=== PATIENT | male | born 1965 | race Two or more races ===

== ENCOUNTER 2021-05-17 16:01 | Emergency (ER) | payer OTHER ==
[~2021-05-17] VITALS: Ht 167.6 cm; Wt 79.5 kg
[2021-05-17 16:35] LABS: BASOPHILS % (AUTO) 0.7 % (0.0-2.0); EOSINOPHILS % (AUTO) 1.2 % (1.0-6.0); HEMATOCRIT 42.6 % (41-53); HEMOGLOBIN 14.7 g/dL (13.5-17.5); LYMPHOCYTES # (AUTO) 2.4 K/uL (1.0-4.8); LYMPHOCYTES % (AUTO) 25.3 % (22.0-44.0); MEAN CORPUSCULAR HEMOGLOBIN 30.9 pg (26.0-34.0); MEAN CORPUSCULAR HGB CONC 34.5 G/dL (31.0-37.0); MEAN CORPUSCULAR VOLUME 90 fL (80-100); MONOCYTES # (AUTO) 0.6 K/uL (0.1-1.0); MONOCYTES % (AUTO) 6.8 % (2.0-9.0); NEUTROPHILS # (AUTO) 6.2 K/uL (1.8-7.7); PLATELET COUNT (AUTO) 316 K/uL (150-450); RED BLOOD CELL COUNT(AUTO) 4.75 MIL/uL (4.50-5.90); RED CELL DISTRIBUTION WIDTH 13.2 % (11.5-14.5)
[2021-05-17 16:42] VITALS: BP 153/98
[2021-05-17 16:46] LABS: ANION GAP 8 mmol/L (8-16); CALCIUM, TOTAL 8.9 mg/dL (8.8-10.5); CARBON DIOXIDE 27 mmol/L (22-29); CHLORIDE 105 mmol/L (98-107); GLOMERULAR FILTR. RATE CALC > 60 mL/min (>60); GLUCOSE,RANDOM 98 mg/dL (70-110); POTASSIUM 3.9 mmol/L (3.5-5.1); SODIUM SERUM 140 mmol/L (136-145); UREA NITROGEN, BLOOD 17 mg/dL (7-18)
[2021-05-17 16:52] LABS: ALANINE AMINOTRANSFERASE 73 U/L (12-78); ALBUMIN 3.7 g/dL (3.4-5.0); ALKALINE PHOSPHATASE 112 U/L (46-116); ASPARTATE AMINOTRANSFERASE 38 U/L (15-37); BILIRUBIN,TOTAL 0.5 mg/dL (0.1-1.0); TOTAL PROTEIN, SERUM 7.5 g/dL (6.4-8.2)
[2021-05-17 17:17] LABS: COVID AG,FIA SOURCE NASOPHARYNGEAL
== END 2021-05-17 18:26 | disposition home or self-care (01) ==
LOC: EMS 16:10
DX: F41.9 Anxiety disorder, unspecified (principal); R07.89 Other chest pain; F19.90 Other psychoactive substance use, unspecified, uncomplicated; Z20.822 Contact with and (suspected) exposure to COVID-19
CPT/HCPCS: 36415; 71045; 80053; 84484; 85025; 87426; 93005; 99285; G0480

== ENCOUNTER 2021-07-04 16:46 | Inpatient (IN) | payer MEDICAID, OTHER ==
[~2021-07-04] VITALS: Ht 172.7 cm; Wt 76.5 kg
[2021-07-04 17:33] LABS: BASOPHILS % (AUTO) 0.7 % (0.0-2.0); EOSINOPHILS % (AUTO) 3.5 % (1.0-6.0); HEMATOCRIT 41.4 % (41-53); HEMOGLOBIN 13.9 g/dL (13.5-17.5); LYMPHOCYTES % (AUTO) 29.9 % (22.0-44.0); MEAN CORPUSCULAR HEMOGLOBIN 30.6 pg (26.0-34.0); MEAN CORPUSCULAR HGB CONC 33.6 G/dL (31.0-37.0); MEAN CORPUSCULAR VOLUME 91 fL (80-100); MONOCYTES # (AUTO) 0.5 K/uL (0.1-1.0); MONOCYTES % (AUTO) 8.2 % (2.0-9.0); NEUTROPHILS # (AUTO) 3.8 K/uL (1.8-7.7); NEUTROPHILS % (AUTO) 57.7 % (40.0-70.0); PLATELET COUNT (AUTO) 270 K/uL (150-450); RED BLOOD CELL COUNT(AUTO) 4.54 MIL/uL (4.50-5.90); RED CELL DISTRIBUTION WIDTH 13.5 % (11.5-14.5)
[2021-07-04 17:45] LABS: ANION GAP 8 mmol/L (8-16); CALCIUM, TOTAL 8.5 mg/dL (8.8-10.5); CARBON DIOXIDE 27 mmol/L (22-29); CHLORIDE 104 mmol/L (98-107); CREATININE 0.73 mg/dL (0.60-1.30); GLOMERULAR FILTR. RATE CALC > 60 mL/min (>60); GLUCOSE,RANDOM 108 mg/dL (70-110); POTASSIUM 4.1 mmol/L (3.5-5.1); SODIUM SERUM 139 mmol/L (136-145); UREA NITROGEN, BLOOD 16 mg/dL (7-18)
[2021-07-04 17:48] LABS: ALANINE AMINOTRANSFERASE 41 U/L (12-78); ALBUMIN 3.4 g/dL (3.4-5.0); ALKALINE PHOSPHATASE 93 U/L (46-116); ASPARTATE AMINOTRANSFERASE 25 U/L (15-37); BILIRUBIN,TOTAL 0.2 mg/dL (0.1-1.0); TOTAL PROTEIN, SERUM 7.4 g/dL (6.4-8.2)
[2021-07-04 19:11] LABS: COVID AG,FIA SOURCE NASOPHARYNGEAL
[2021-07-04] MEDS ORDERED: ZOLPIDEM TARTRATE 10 MG TABLET PO PRN (20:30)
[2021-07-04 20:47] LABS: AMPHET/METH SCREEN,URINE NEGATIVE (NEGATIVE); BARBITURATE SCREEN, URINE NEGATIVE (NEGATIVE); BENZODIAZEPINES SCREEN,URINE NEGATIVE (NEGATIVE); CANNABINOID SCREEN,URINE POSITIVE (NEGATIVE); COCAINE SCREEN,URINE NEGATIVE (NEGATIVE); METHADONE SCREEN, URINE NEGATIVE (NEGATIVE); OPIATE SCREEN,URINE NEGATIVE (NEGATIVE)
[2021-07-04 20:50] LABS: PHENCYCLIDINE SCREEN,URINE NEGATIVE (NEGATIVE)
[2021-07-04 22:02] VITALS: BP 150/97
[2021-07-04] MEDS ORDERED: LOPERAMIDE HCL 2 MG CAPSULE PO PRN (22:45)
[2021-07-04] MEDS ORDERED: MAGNESIUM HYDROXIDE SUSPENSION 30 ML UDCUP PO PRN (22:45)
[2021-07-04] MEDS ORDERED: DOCUSATE SODIUM 100 MG CAPSULE PO PRN (22:45)
[2021-07-04] MEDS ORDERED: ALBUTEROL SULFATE HFA 90 MCG/PUFF 8 GM INHALER IH PRN (22:45)
[2021-07-04] MEDS ORDERED: PETROLATUM,WHITE 28 GM JELLY TP PRN (22:45)
[2021-07-04] MEDS ORDERED: CloNIDine HCL 0.1 MG TABLET PO PRN (22:45)
[2021-07-04] MEDS ORDERED: NICOTINE 14 MG/24 HOUR PATCH TD PRN (22:45)
[2021-07-04] MEDS ORDERED: ONDANSETRON HCL 4 MG TABLET PO PRN (22:45)
[2021-07-04] MEDS ORDERED: MAG HYDROX/AL HYDROX/SIMETH ES 30 ML SUSPENSION UDCUP PO PRN (22:45)
[2021-07-04] MEDS ORDERED: GuaiFENesin/D-METHORPHAN [SUGAR-FREE] 200-20MG/10 ML SYRUP UDCUP PO PRN (22:45)
[2021-07-04 23:12] LABS: APPEARANCE,URINE CLEAR (CLEAR); BILIRUBIN,URINE NEGATIVE (NEGATIVE); GLUCOSE, URINE (UA) NEGATIVE (NEGATIVE); KETONES,URINE NEGATIVE (NEGATIVE); LEUKOCYTE ESTERASE ,URINE NEGATIVE (NEGATIVE); NITRATE,URINE NEGATIVE (NEGATIVE); OCCULT BLOOD,URINE NEGATIVE (NEGATIVE); PROTEIN,URINE NEGATIVE (NEGATIVE); UROBILINOGEN,URINE 0.2 mg/dL (<=1.0)
[2021-07-05 02:38] VITALS: BP 152/94
[2021-07-05 03:20] VITALS: BP 155/95
[2021-07-05] MEDS: IBUPROFEN 400 MG TABLET PO PRN ×2 (03:23→08:15)
[2021-07-05 06:49] LABS: BASOPHILS % (AUTO) 0.9 % (0.0-2.0); EOSINOPHILS % (AUTO) 3.4 % (1.0-6.0); HEMATOCRIT 42.4 % (41-53); HEMOGLOBIN 14.4 g/dL (13.5-17.5); LYMPHOCYTES # (AUTO) 1.9 K/uL (1.0-4.8); LYMPHOCYTES % (AUTO) 29.8 % (22.0-44.0); MEAN CORPUSCULAR HEMOGLOBIN 30.6 pg (26.0-34.0); MEAN CORPUSCULAR HGB CONC 33.9 G/dL (31.0-37.0); MEAN CORPUSCULAR VOLUME 90 fL (80-100); MONOCYTES # (AUTO) 0.5 K/uL (0.1-1.0); NEUTROPHILS # (AUTO) 3.8 K/uL (1.8-7.7); NEUTROPHILS % (AUTO) 58.9 % (40.0-70.0); PLATELET COUNT (AUTO) 272 K/uL (150-450); RED BLOOD CELL COUNT(AUTO) 4.69 MIL/uL (4.50-5.90); RED CELL DISTRIBUTION WIDTH 13.2 % (11.5-14.5)
[2021-07-05 07:14] LABS: CHOL/HDL RATIO 3.7 (4.2-7.3)
[2021-07-05 07:21] LABS: HEMOGLOBIN A1C 5.3 % (3.8-5.6)
[2021-07-05 07:25] LABS: ALANINE AMINOTRANSFERASE 40 U/L (12-78); ALBUMIN 3.3 g/dL (3.4-5.0); ALKALINE PHOSPHATASE 89 U/L (46-116); ANION GAP 8 mmol/L (8-16); ASPARTATE AMINOTRANSFERASE 22 U/L (15-37); BILIRUBIN,TOTAL 0.3 mg/dL (0.1-1.0); CARBON DIOXIDE 23 mmol/L (22-29); CHLORIDE 105 mmol/L (98-107); CREATININE 0.66 mg/dL (0.60-1.30); GLOMERULAR FILTR. RATE CALC > 60 mL/min (>60); GLUCOSE,RANDOM 101 mg/dL (70-110); POTASSIUM 4.6 mmol/L (3.5-5.1); SODIUM SERUM 136 mmol/L (136-145); THYROID STIMULATING HORMONE 0.84 uIU/mL (0.36-3.74); TOTAL PROTEIN, SERUM 7.1 g/dL (6.4-8.2); UREA NITROGEN, BLOOD 14 mg/dL (7-18)
[2021-07-05] MEDS ORDERED: MAG HYDROX/AL HYDROX/SIMETH ES 30 ML SUSPENSION UDCUP PO PRN (07:30)
[2021-07-05] MEDS ORDERED: ALBUTEROL SULFATE HFA 90 MCG/PUFF 8 GM INHALER IH PRN (07:30)
[2021-07-05] MEDS ORDERED: GuaiFENesin/D-METHORPHAN [SUGAR-FREE] 200-20MG/10 ML SYRUP UDCUP PO PRN (07:30)
[2021-07-05] MEDS ORDERED: IBUPROFEN 400 MG TABLET PO PRN (07:30)
[2021-07-05] MEDS ORDERED: CloNIDine HCL 0.1 MG TABLET PO PRN (07:30)
[2021-07-05] MEDS ORDERED: ACETAMINOPHEN 325 MG TABLET PO PRN (07:30)
[2021-07-05] MEDS ORDERED: PETROLATUM,WHITE 28 GM JELLY TP PRN (07:30)
[2021-07-05] MEDS ORDERED: NICOTINE 14 MG/24 HOUR PATCH TD PRN (07:30)
[2021-07-05] MEDS ORDERED: DOCUSATE SODIUM 100 MG CAPSULE PO PRN (07:30)
[2021-07-05] MEDS ORDERED: ONDANSETRON HCL 4 MG TABLET PO PRN (07:30)
[2021-07-05] MEDS ORDERED: LOPERAMIDE HCL 2 MG CAPSULE PO PRN (07:30)
[2021-07-05] MEDS ORDERED: MAGNESIUM HYDROXIDE SUSPENSION 30 ML UDCUP PO PRN (07:30)
[2021-07-05] MEDS: LORazepam 2 MG TABLET PO PRN (08:13)
[2021-07-05 08:15] VITALS: BP 143/78
[2021-07-05] MEDS: HALOPERIDOL 5 MG TABLET PO PRN ×2 (11:46→16:23)
[2021-07-05 11:54] VITALS: BP 138/76
[2021-07-05 16:00] VITALS: BP 117/71
[2021-07-05] MEDS: RisperiDONE 1 MG TABLET PO SCH (20:35)
[2021-07-06 05:01] VITALS: BP 122/63
[2021-07-06] MEDS: IBUPROFEN 400 MG TABLET PO PRN (05:01)
[2021-07-06] MEDS: SERTRALINE HCL 50 MG TABLET PO SCH (07:20)
[2021-07-06] MEDS: HALOPERIDOL 5 MG TABLET PO PRN (07:20)
[2021-07-06] MEDS: RisperiDONE 1 MG TABLET PO SCH ×2 (07:20→20:03)
[2021-07-06 08:49] VITALS: BP 150/90
[2021-07-06 17:10] VITALS: BP 124/82
[2021-07-07] MEDS: SERTRALINE HCL 50 MG TABLET PO SCH (07:53)
[2021-07-07] MEDS: RisperiDONE 1 MG TABLET PO SCH ×2 (07:53→20:19)
[2021-07-07] MEDS: IBUPROFEN 400 MG TABLET PO PRN ×2 (07:54→16:11)
[2021-07-07 08:28] VITALS: BP 145/91
[2021-07-07 16:09] VITALS: BP 145/81
[2021-07-08] MEDS: SERTRALINE HCL 50 MG TABLET PO SCH (08:16)
[2021-07-08] MEDS: IBUPROFEN 400 MG TABLET PO PRN ×2 (08:16→19:52)
[2021-07-08] MEDS: RisperiDONE 1 MG TABLET PO SCH ×2 (08:16→20:02)
[2021-07-08] MEDS: LORazepam 2 MG TABLET PO PRN (08:16)
[2021-07-08 08:20] VITALS: BP 132/87
[2021-07-08 16:20] VITALS: BP 116/83
[2021-07-08] MEDS: ACETAMINOPHEN 325 MG TABLET PO PRN (17:10)
[2021-07-09 04:20] VITALS: BP 120/74
[2021-07-09] MEDS: IBUPROFEN 400 MG TABLET PO PRN (04:20)
[2021-07-09] MEDS: ACETAMINOPHEN 325 MG TABLET PO PRN (07:04)
[2021-07-09] MEDS: RisperiDONE 1 MG TABLET PO SCH (08:11)
[2021-07-09] MEDS: SERTRALINE HCL 50 MG TABLET PO SCH (08:11)
[2021-07-09] MEDS ORDERED: RISP1TAB48 PO (10:58)
[2021-07-09] MEDS ORDERED: SERT-158 PO (10:59)
== END 2021-07-09 14:00 | disposition home or self-care (01) | DRG 750 ==
LOC: EMS 17:18 → 3EC 20:30 → 3EI 07-08 12:30
DX: F20.0 Paranoid schizophrenia (principal); R45.851 Suicidal ideations; E88.09 Other disorders of plasma-protein metabolism, not elsewhere classified; F12.10 Cannabis abuse, uncomplicated; M16.12 Unilateral primary osteoarthritis, left hip; R03.0 Elevated blood-pressure reading, without diagnosis of hypertension; Z20.822 Contact with and (suspected) exposure to COVID-19; Z96.642 Presence of left artificial hip joint; Z59.0 Homelessness; Z79.899 Other long term (current) drug therapy
CPT/HCPCS: 80053; 80061; 81003; 83036; 84443; 85025; 99285; G0480

== ENCOUNTER 2022-08-06 19:58 | Inpatient (IN) | payer MEDICAID ==
[~2022-08-06] VITALS: Ht 167.6 cm; Wt 164.0 kg
[~2022-08-06 19:58] MED LIST: RISP1TAB48 PO; SERT-158 PO
[2022-08-06] MEDS ORDERED: GABA-1181 PO (20:42)
[2022-08-06 21:03] LABS: BASOPHILS % (AUTO) 0.5 % (0.0-2.0); EOSINOPHILS % (AUTO) 1.9 % (1.0-6.0); HEMATOCRIT 46.4 % (41-53); HEMOGLOBIN 15.7 g/dL (13.5-17.5); LYMPHOCYTES # (AUTO) 2.4 K/uL (1.0-4.8); LYMPHOCYTES % (AUTO) 29.7 % (22.0-44.0); MEAN CORPUSCULAR HEMOGLOBIN 30.7 pg (26.0-34.0); MEAN CORPUSCULAR HGB CONC 33.9 G/dL (31.0-37.0); MEAN CORPUSCULAR VOLUME 91 fL (80-100); MONOCYTES # (AUTO) 0.5 K/uL (0.1-1.0); MONOCYTES % (AUTO) 6.1 % (2.0-9.0); NEUTROPHILS # (AUTO) 5.1 K/uL (1.8-7.7); NEUTROPHILS % (AUTO) 61.8 % (40.0-70.0); PLATELET COUNT (AUTO) 270 K/uL (150-450); RED BLOOD CELL COUNT(AUTO) 5.11 MIL/uL (4.50-5.90); RED CELL DISTRIBUTION WIDTH 13.5 % (11.5-14.5)
[2022-08-06 21:11] LABS: ANION GAP 5 mmol/L (8-16); CARBON DIOXIDE 29 mmol/L (22-29); CHLORIDE 105 mmol/L (98-107); GLUCOSE,RANDOM 86 mg/dL (70-110); POTASSIUM 3.4 mmol/L (3.5-5.1); SODIUM SERUM 139 mmol/L (136-145); UREA NITROGEN, BLOOD 10 mg/dL (7-18)
[2022-08-06 21:12] LABS: GLOMERULAR FILTR. RATE CALC > 60 mL/min (>60)
[2022-08-06 21:17] LABS: ALANINE AMINOTRANSFERASE 35 U/L (12-78); ALBUMIN 3.8 g/dL (3.4-5.0); ALKALINE PHOSPHATASE 104 U/L (46-116); ASPARTATE AMINOTRANSFERASE 23 U/L (15-37); BILIRUBIN,TOTAL 0.4 mg/dL (0.1-1.0); CALCIUM, TOTAL 8.8 mg/dL (8.8-10.5); TOTAL PROTEIN, SERUM 7.4 g/dL (6.4-8.2)
[2022-08-06 21:17] LABS: COVID AG,FIA SOURCE NASOPHARYNGEAL
[2022-08-06] MEDS ORDERED: RisperiDONE 1 MG TABLET PO ONE (21:45)
[2022-08-07] MEDS: ZOLPIDEM TARTRATE 10 MG TABLET PO PRN (02:53)
[2022-08-07 03:26] VITALS: BP 138/80
[2022-08-07] MEDS: LORazepam 2 MG TABLET PO PRN (08:38)
[2022-08-07] MEDS ORDERED: MAG HYDROX/AL HYDROX/SIMETH ES 30 ML SUSPENSION UDCUP PO PRN (09:15)
[2022-08-07] MEDS ORDERED: ALBUTEROL SULFATE HFA 90 MCG/PUFF 8 GM INHALER IH PRN (09:15)
[2022-08-07] MEDS ORDERED: CloNIDine HCL 0.1 MG TABLET PO PRN (09:15)
[2022-08-07] MEDS ORDERED: ONDANSETRON HCL 4 MG TABLET PO PRN (09:15)
[2022-08-07] MEDS ORDERED: NICOTINE 14 MG/24 HOUR PATCH TD PRN (09:15)
[2022-08-07] MEDS ORDERED: MAGNESIUM HYDROXIDE SUSPENSION 30 ML UDCUP PO PRN (09:15)
[2022-08-07] MEDS ORDERED: LOPERAMIDE HCL 2 MG CAPSULE PO PRN (09:15)
[2022-08-07] MEDS ORDERED: PETROLATUM,WHITE 28 GM JELLY TP PRN (09:15)
[2022-08-07] MEDS ORDERED: DOCUSATE SODIUM 100 MG CAPSULE PO PRN (09:15)
[2022-08-07] MEDS ORDERED: GuaiFENesin/D-METHORPHAN [SUGAR-FREE] 200-20MG/10 ML SYRUP UDCUP PO PRN (09:15)
[2022-08-07] MEDS ORDERED: GABAPENTIN 300 MG CAPSULE PO SCH (13:00)
[2022-08-07] MEDS: RisperiDONE 1 MG TABLET PO SCH ×2 (13:28→20:07)
[2022-08-07] MEDS: GABAPENTIN 100 MG CAPSULE PO SCH ×2 (13:28→16:12)
[2022-08-07] MEDS: SERTRALINE HCL 50 MG TABLET PO SCH (13:28)
[2022-08-07 16:36] VITALS: BP 110/70
[2022-08-07 21:54] VITALS: BP 114/72
[2022-08-08 08:25] VITALS: BP 153/92
[2022-08-08] MEDS: RisperiDONE 1 MG TABLET PO SCH ×2 (08:25→21:16)
[2022-08-08] MEDS: GABAPENTIN 100 MG CAPSULE PO SCH ×3 (08:25→16:15)
[2022-08-08] MEDS: SERTRALINE HCL 50 MG TABLET PO SCH (08:25)
[2022-08-08] MEDS: IBUPROFEN 400 MG TABLET PO PRN (08:27)
[2022-08-08 16:44] VITALS: BP 127/85
[2022-08-08] MEDS: ZOLPIDEM TARTRATE 10 MG TABLET PO PRN (21:16)
[2022-08-08] MEDS: HALOPERIDOL 5 MG TABLET PO PRN (21:16)
[2022-08-09] MEDS: RisperiDONE 1 MG TABLET PO SCH ×2 (08:35→20:25)
[2022-08-09] MEDS: SERTRALINE HCL 50 MG TABLET PO SCH (08:35)
[2022-08-09] MEDS: GABAPENTIN 100 MG CAPSULE PO SCH ×3 (08:35→18:26)
[2022-08-09 08:49] VITALS: BP 150/92
[2022-08-09 16:00] VITALS: BP 149/87
[2022-08-09 18:26] VITALS: BP_SYST 148; BP_DIAS 79; BP_DIAS 88
[2022-08-09] MEDS: IBUPROFEN 400 MG TABLET PO PRN (18:26)
[2022-08-10 09:43] VITALS: BP 142/87
[2022-08-10] MEDS: SERTRALINE HCL 50 MG TABLET PO SCH (09:49)
[2022-08-10] MEDS: IBUPROFEN 400 MG TABLET PO PRN (09:49)
[2022-08-10] MEDS: RisperiDONE 1 MG TABLET PO SCH ×2 (09:49→20:46)
[2022-08-10] MEDS: GABAPENTIN 100 MG CAPSULE PO SCH ×3 (09:49→17:14)
[2022-08-10] MEDS: ACETAMINOPHEN 325 MG TABLET PO PRN (14:18)
[2022-08-10 16:30] VITALS: BP 139/89
[2022-08-10 16:31] VITALS: BP 139/89
[2022-08-11 02:42] VITALS: BP 134/81
[2022-08-11] MEDS: ZOLPIDEM TARTRATE 10 MG TABLET PO PRN (02:43)
[2022-08-11] MEDS: IBUPROFEN 400 MG TABLET PO PRN ×2 (02:43→12:07)
[2022-08-11 08:35] VITALS: BP 116/77
[2022-08-11] MEDS: RisperiDONE 1 MG TABLET PO SCH ×2 (08:38→20:33)
[2022-08-11] MEDS: ACETAMINOPHEN 325 MG TABLET PO PRN ×2 (08:38→16:56)
[2022-08-11] MEDS: GABAPENTIN 100 MG CAPSULE PO SCH ×3 (08:38→16:55)
[2022-08-11] MEDS: SERTRALINE HCL 50 MG TABLET PO SCH (08:38)
[2022-08-11 12:05] VITALS: BP 120/70
[2022-08-11 16:52] VITALS: BP 154/92
[2022-08-11] MEDS: LORazepam 2 MG TABLET PO PRN (16:55)
[2022-08-12] MEDS: IBUPROFEN 400 MG TABLET PO PRN ×2 (06:38→10:22)
[2022-08-12] MEDS: LORazepam 2 MG TABLET PO PRN ×2 (06:40→18:00)
[2022-08-12 06:44] LABS: COVID AG,FIA SOURCE NASAL SWAB
[2022-08-12 08:30] VITALS: BP 132/80
[2022-08-12] MEDS: MULTIVITAMINS WITH IRON TABLET PO SCH (09:02)
[2022-08-12] MEDS: RisperiDONE 1 MG TABLET PO SCH ×2 (09:02→21:37)
[2022-08-12] MEDS: GABAPENTIN 100 MG CAPSULE PO SCH ×3 (09:02→16:35)
[2022-08-12] MEDS: SERTRALINE HCL 50 MG TABLET PO SCH (09:02)
[2022-08-12 10:22] VITALS: BP 136/76
[2022-08-12 16:07] VITALS: BP 119/72
[2022-08-12] MEDS: HALOPERIDOL 5 MG TABLET PO PRN (18:00)
[2022-08-12 21:45] VITALS: BP 143/80
[2022-08-12] MEDS: ACETAMINOPHEN 325 MG TABLET PO PRN (21:48)
[2022-08-12] MEDS: ZOLPIDEM TARTRATE 10 MG TABLET PO PRN (21:48)
[2022-08-13 08:30] VITALS: BP 130/88
[2022-08-13] MEDS: MULTIVITAMINS WITH IRON TABLET PO SCH (08:39)
[2022-08-13] MEDS: GABAPENTIN 100 MG CAPSULE PO SCH ×3 (08:39→16:53)
[2022-08-13] MEDS: SERTRALINE HCL 50 MG TABLET PO SCH (08:39)
[2022-08-13] MEDS: RisperiDONE 1 MG TABLET PO SCH ×2 (08:39→21:24)
[2022-08-13 16:46] VITALS: BP 102/68
[2022-08-13 16:53] VITALS: BP 102/68
[2022-08-13] MEDS: IBUPROFEN 400 MG TABLET PO PRN (16:53)
[2022-08-13] MEDS: ZOLPIDEM TARTRATE 10 MG TABLET PO PRN (21:24)
[2022-08-14] MEDS: LORazepam 2 MG TABLET PO PRN ×3 (01:28→21:05)
[2022-08-14] MEDS: HALOPERIDOL 5 MG TABLET PO PRN ×3 (01:28→21:05)
[2022-08-14 08:41] VITALS: BP 108/74
[2022-08-14] MEDS: GABAPENTIN 100 MG CAPSULE PO SCH ×3 (08:43→16:28)
[2022-08-14] MEDS: RisperiDONE 1 MG TABLET PO SCH ×2 (08:44→21:05)
[2022-08-14] MEDS: IBUPROFEN 400 MG TABLET PO PRN ×2 (08:44→20:30)
[2022-08-14] MEDS: SERTRALINE HCL 50 MG TABLET PO SCH (08:44)
[2022-08-14] MEDS: MULTIVITAMINS WITH IRON TABLET PO SCH (08:44)
[2022-08-14 12:15] VITALS: BP 120/70
[2022-08-14] MEDS: ACETAMINOPHEN 325 MG TABLET PO PRN (12:18)
[2022-08-14 16:43] VITALS: BP 128/69
[2022-08-14 20:30] VITALS: BP 131/78
[2022-08-15] MEDS: MULTIVITAMINS WITH IRON TABLET PO SCH (08:58)
[2022-08-15] MEDS: GABAPENTIN 100 MG CAPSULE PO SCH ×3 (08:59→16:08)
[2022-08-15] MEDS: RisperiDONE 1 MG TABLET PO SCH ×2 (08:59→20:29)
[2022-08-15] MEDS: SERTRALINE HCL 50 MG TABLET PO SCH (08:59)
[2022-08-15] MEDS: IBUPROFEN 400 MG TABLET PO PRN (09:00)
[2022-08-15 09:01] VITALS: BP 120/76
[2022-08-15 10:01] VITALS: BP 130/78
[2022-08-15] MEDS: LORazepam 2 MG TABLET PO PRN ×2 (16:25→20:29)
[2022-08-15] MEDS: HALOPERIDOL 5 MG TABLET PO PRN ×2 (16:25→20:29)
[2022-08-15 17:14] VITALS: BP 143/93
[2022-08-16] MEDS: MULTIVITAMINS WITH IRON TABLET PO SCH (08:53)
[2022-08-16] MEDS: RisperiDONE 1 MG TABLET PO SCH ×2 (08:53→20:11)
[2022-08-16] MEDS: IBUPROFEN 400 MG TABLET PO PRN (08:53)
[2022-08-16] MEDS: GABAPENTIN 100 MG CAPSULE PO SCH ×3 (08:53→15:59)
[2022-08-16] MEDS: SERTRALINE HCL 50 MG TABLET PO SCH (08:53)
[2022-08-16 08:54] VITALS: BP 134/88
[2022-08-16] MEDS: HALOPERIDOL 5 MG TABLET PO PRN (15:59)
[2022-08-16] MEDS: LORazepam 2 MG TABLET PO PRN (15:59)
[2022-08-16 16:27] VITALS: BP 136/81
[2022-08-17 08:25] VITALS: BP 129/84
[2022-08-17] MEDS: GABAPENTIN 100 MG CAPSULE PO SCH ×3 (08:26→17:15)
[2022-08-17] MEDS: MULTIVITAMINS WITH IRON TABLET PO SCH (08:26)
[2022-08-17] MEDS: SERTRALINE HCL 50 MG TABLET PO SCH (08:26)
[2022-08-17] MEDS: RisperiDONE 1 MG TABLET PO SCH ×2 (08:26→20:52)
[2022-08-17] MEDS: IBUPROFEN 400 MG TABLET PO PRN (08:27)
[2022-08-17] MEDS: LORazepam 2 MG TABLET PO PRN (15:10)
[2022-08-17 16:10] VITALS: BP 132/87
[2022-08-17] MEDS: ZOLPIDEM TARTRATE 10 MG TABLET PO PRN (20:37)
[2022-08-18] MEDS: HALOPERIDOL 5 MG TABLET PO PRN ×2 (05:13→16:23)
[2022-08-18] MEDS: LORazepam 2 MG TABLET PO PRN ×2 (05:13→16:23)
[2022-08-18 08:00] VITALS: BP 117/71
[2022-08-18] MEDS: RisperiDONE 1 MG TABLET PO SCH ×2 (08:52→20:23)
[2022-08-18] MEDS: GABAPENTIN 100 MG CAPSULE PO SCH ×3 (08:52→16:19)
[2022-08-18] MEDS: MULTIVITAMINS WITH IRON TABLET PO SCH (08:53)
[2022-08-18] MEDS: SERTRALINE HCL 50 MG TABLET PO SCH (08:53)
[2022-08-18 16:00] VITALS: BP 118/71
[2022-08-18 18:54] VITALS: BP 120/76
[2022-08-18] MEDS: IBUPROFEN 400 MG TABLET PO PRN (18:57)
[2022-08-19 06:39] LABS: COVID AG,FIA SOURCE NASAL SWAB
[2022-08-19 08:00] VITALS: BP 113/62
[2022-08-19] MEDS: RisperiDONE 1 MG TABLET PO SCH ×2 (09:10→21:17)
[2022-08-19] MEDS: GABAPENTIN 100 MG CAPSULE PO SCH ×3 (09:11→16:30)
[2022-08-19] MEDS: MULTIVITAMINS WITH IRON TABLET PO SCH (09:12)
[2022-08-19] MEDS: SERTRALINE HCL 50 MG TABLET PO SCH (09:12)
[2022-08-19 12:32] VITALS: BP 127/69
[2022-08-19] MEDS: IBUPROFEN 400 MG TABLET PO PRN ×2 (12:35→22:05)
[2022-08-19 16:00] VITALS: BP 124/79
[2022-08-19 22:05] VITALS: BP 143/90
[2022-08-19] MEDS: ZOLPIDEM TARTRATE 10 MG TABLET PO PRN (22:05)
[2022-08-20 04:41] VITALS: BP 129/69
[2022-08-20] MEDS: LORazepam 2 MG TABLET PO PRN ×2 (04:41→14:58)
[2022-08-20 08:15] VITALS: BP 112/62
[2022-08-20] MEDS: GABAPENTIN 100 MG CAPSULE PO SCH ×3 (08:16→16:03)
[2022-08-20] MEDS: MULTIVITAMINS WITH IRON TABLET PO SCH (08:16)
[2022-08-20] MEDS: SERTRALINE HCL 50 MG TABLET PO SCH (08:16)
[2022-08-20] MEDS: RisperiDONE 1 MG TABLET PO SCH ×2 (08:16→20:09)
[2022-08-20] MEDS: HALOPERIDOL 5 MG TABLET PO PRN ×2 (08:16→14:58)
[2022-08-20 16:13] VITALS: BP 120/68
[2022-08-21 08:50] VITALS: BP 109/69
[2022-08-21] MEDS: RisperiDONE 1 MG TABLET PO SCH ×2 (09:03→20:27)
[2022-08-21] MEDS: GABAPENTIN 100 MG CAPSULE PO SCH ×3 (09:03→16:14)
[2022-08-21] MEDS: MULTIVITAMINS WITH IRON TABLET PO SCH (09:03)
[2022-08-21] MEDS: SERTRALINE HCL 50 MG TABLET PO SCH (09:03)
[2022-08-21 16:13] VITALS: BP 148/84
[2022-08-21] MEDS: LORazepam 2 MG TABLET PO PRN (16:14)
[2022-08-22] MEDS: SERTRALINE HCL 50 MG TABLET PO SCH (08:33)
[2022-08-22] MEDS: GABAPENTIN 100 MG CAPSULE PO SCH ×3 (08:33→17:22)
[2022-08-22] MEDS: MULTIVITAMINS WITH IRON TABLET PO SCH (08:33)
[2022-08-22] MEDS: RisperiDONE 1 MG TABLET PO SCH ×2 (08:34→20:36)
[2022-08-22 09:43] VITALS: BP 135/75
[2022-08-22] MEDS ORDERED: GABA-1216 PO (12:48)
[2022-08-22] MEDS ORDERED: MULT400T15 PO (12:48)
[2022-08-22] MEDS: LORazepam 2 MG TABLET PO PRN (13:10)
[2022-08-22 16:12] VITALS: BP 141/83
[2022-08-22] MEDS: ZOLPIDEM TARTRATE 10 MG TABLET PO PRN (21:01)
[2022-08-23] MEDS: MULTIVITAMINS WITH IRON TABLET PO SCH (08:37)
[2022-08-23] MEDS: SERTRALINE HCL 50 MG TABLET PO SCH (08:37)
[2022-08-23] MEDS: RisperiDONE 1 MG TABLET PO SCH ×2 (08:37→21:09)
[2022-08-23] MEDS: GABAPENTIN 100 MG CAPSULE PO SCH ×3 (08:37→16:22)
[2022-08-23 08:45] VITALS: BP 112/78
[2022-08-23] MEDS: IBUPROFEN 400 MG TABLET PO PRN (16:23)
[2022-08-23 16:31] VITALS: BP 120/80
[2022-08-23] MEDS: ZOLPIDEM TARTRATE 10 MG TABLET PO PRN (21:09)
[2022-08-24 04:07] VITALS: BP 125/86
[2022-08-24] MEDS: IBUPROFEN 400 MG TABLET PO PRN ×2 (04:09→12:27)
[2022-08-24 08:30] VITALS: BP 126/80
[2022-08-24] MEDS: GABAPENTIN 100 MG CAPSULE PO SCH ×3 (08:30→16:57)
[2022-08-24] MEDS: RisperiDONE 1 MG TABLET PO SCH (08:30)
[2022-08-24] MEDS: SERTRALINE HCL 50 MG TABLET PO SCH (08:30)
[2022-08-24] MEDS: MULTIVITAMINS WITH IRON TABLET PO SCH (08:30)
[2022-08-24] MEDS: LORazepam 2 MG TABLET PO PRN (12:26)
[2022-08-24 16:37] VITALS: BP 145/76
[2022-08-24] MEDS: RisperiDONE 2 MG TABLET PO SCH (20:19)
[2022-08-25] MEDS: LORazepam 2 MG TABLET PO PRN ×2 (05:46→20:56)
[2022-08-25] MEDS: IBUPROFEN 400 MG TABLET PO PRN (05:46)
[2022-08-25 05:47] VITALS: BP 144/81
[2022-08-25 08:00] VITALS: BP 123/72
[2022-08-25] MEDS: SERTRALINE HCL 100 MG TABLET PO SCH (08:30)
[2022-08-25] MEDS: MULTIVITAMINS WITH IRON TABLET PO SCH (08:30)
[2022-08-25] MEDS: RisperiDONE 2 MG TABLET PO SCH ×2 (08:30→20:56)
[2022-08-25] MEDS: GABAPENTIN 100 MG CAPSULE PO SCH ×3 (08:31→16:37)
[2022-08-25 16:00] VITALS: BP 157/75
[2022-08-25 20:47] VITALS: BP 150/68
[2022-08-25] MEDS: HALOPERIDOL 5 MG TABLET PO PRN (20:56)
[2022-08-26 06:45] LABS: COVID AG,FIA SOURCE NASAL SWAB
[2022-08-26] MEDS: MULTIVITAMINS WITH IRON TABLET PO SCH (08:09)
[2022-08-26] MEDS: SERTRALINE HCL 100 MG TABLET PO SCH (08:09)
[2022-08-26] MEDS: RisperiDONE 2 MG TABLET PO SCH ×2 (08:09→20:48)
[2022-08-26] MEDS: GABAPENTIN 100 MG CAPSULE PO SCH ×3 (08:09→16:38)
[2022-08-26 08:12] VITALS: BP 122/75
[2022-08-26] MEDS: IBUPROFEN 400 MG TABLET PO PRN ×2 (08:12→16:49)
[2022-08-26 08:30] VITALS: BP 122/75
[2022-08-26 16:18] VITALS: BP 118/77
[2022-08-26 16:19] VITALS: BP 118/77
[2022-08-26 16:49] VITALS: BP 118/77
[2022-08-26] MEDS: LORazepam 2 MG TABLET PO PRN (20:48)
[2022-08-26] MEDS: HALOPERIDOL 5 MG TABLET PO PRN (20:48)
[2022-08-27 06:27] VITALS: BP 117/68
[2022-08-27] MEDS: IBUPROFEN 400 MG TABLET PO PRN ×2 (06:28→15:22)
[2022-08-27] MEDS: SERTRALINE HCL 100 MG TABLET PO SCH (08:40)
[2022-08-27] MEDS: RisperiDONE 2 MG TABLET PO SCH ×2 (08:40→20:51)
[2022-08-27] MEDS: MULTIVITAMINS WITH IRON TABLET PO SCH (08:40)
[2022-08-27] MEDS: GABAPENTIN 100 MG CAPSULE PO SCH ×3 (08:40→17:05)
[2022-08-27 09:28] VITALS: BP 119/81
[2022-08-27 15:22] VITALS: BP 140/87
[2022-08-27] MEDS: LORazepam 2 MG TABLET PO PRN ×2 (15:22→20:51)
[2022-08-27 16:42] VITALS: BP 137/93
[2022-08-27] MEDS: HALOPERIDOL 5 MG TABLET PO PRN (20:51)
[2022-08-28 06:24] VITALS: BP 129/92
[2022-08-28] MEDS: IBUPROFEN 400 MG TABLET PO PRN ×2 (06:29→15:23)
[2022-08-28] MEDS: HALOPERIDOL 5 MG TABLET PO PRN ×3 (06:29→21:03)
[2022-08-28] MEDS: LORazepam 2 MG TABLET PO PRN ×3 (06:29→21:03)
[2022-08-28 07:29] VITALS: BP 117/76
[2022-08-28] MEDS: SERTRALINE HCL 100 MG TABLET PO SCH (08:33)
[2022-08-28] MEDS: GABAPENTIN 100 MG CAPSULE PO SCH ×3 (08:33→16:31)
[2022-08-28] MEDS: RisperiDONE 2 MG TABLET PO SCH ×2 (08:33→21:02)
[2022-08-28] MEDS: MULTIVITAMINS WITH IRON TABLET PO SCH (08:33)
[2022-08-28 08:43] VITALS: BP 117/76
[2022-08-28 15:23] VITALS: BP 118/72
[2022-08-28 16:22] VITALS: BP 119/67
[2022-08-29] MEDS: HALOPERIDOL 5 MG TABLET PO PRN ×3 (05:06→21:09)
[2022-08-29] MEDS: LORazepam 2 MG TABLET PO PRN ×3 (05:06→21:09)
[2022-08-29 09:18] VITALS: BP 119/78
[2022-08-29] MEDS: RisperiDONE 2 MG TABLET PO SCH ×2 (10:20→21:09)
[2022-08-29] MEDS: GABAPENTIN 100 MG CAPSULE PO SCH ×3 (10:20→16:24)
[2022-08-29] MEDS: MULTIVITAMINS WITH IRON TABLET PO SCH (10:20)
[2022-08-29] MEDS: SERTRALINE HCL 100 MG TABLET PO SCH (10:20)
[2022-08-29 16:24] VITALS: BP 121/75
[2022-08-29] MEDS: IBUPROFEN 400 MG TABLET PO PRN (16:24)
[2022-08-29 16:25] VITALS: BP 121/75
[2022-08-30] MEDS: LORazepam 2 MG TABLET PO PRN ×2 (06:35→20:57)
[2022-08-30] MEDS: HALOPERIDOL 5 MG TABLET PO PRN ×2 (06:35→20:57)
[2022-08-30 08:00] VITALS: BP 118/72
[2022-08-30] MEDS: MULTIVITAMINS WITH IRON TABLET PO SCH (08:18)
[2022-08-30] MEDS: GABAPENTIN 100 MG CAPSULE PO SCH ×3 (08:18→16:15)
[2022-08-30] MEDS: SERTRALINE HCL 100 MG TABLET PO SCH (08:18)
[2022-08-30] MEDS: RisperiDONE 2 MG TABLET PO SCH ×2 (08:18→20:57)
[2022-08-30 16:14] VITALS: BP 114/74
[2022-08-31] MEDS: LORazepam 2 MG TABLET PO PRN (06:45)
[2022-08-31] MEDS: HALOPERIDOL 5 MG TABLET PO PRN (06:45)
[2022-08-31 09:00] VITALS: BP 102/65
[2022-08-31] MEDS: RisperiDONE 2 MG TABLET PO SCH (09:00)
[2022-08-31] MEDS: MULTIVITAMINS WITH IRON TABLET PO SCH (09:00)
[2022-08-31] MEDS: SERTRALINE HCL 100 MG TABLET PO SCH (09:00)
[2022-08-31] MEDS: GABAPENTIN 100 MG CAPSULE PO SCH ×3 (09:01→16:07)
[2022-08-31 12:12] LABS: COVID AG,FIA SOURCE NASAL SWAB
[2022-08-31 16:00] VITALS: BP 111/59
[2022-08-31] MEDS ORDERED: RISP2TAB86 PO (16:15)
[2022-08-31] MEDS ORDERED: SERT-440 PO (16:15)
[2022-08-31] MEDS ORDERED: GABA-1216 PO (16:15)
[2022-08-31] MEDS ORDERED: MULT-1390 PO (16:15)
[2022-08-31 17:52] VITALS: BP 113/68
[2022-08-31] MEDS: ACETAMINOPHEN 325 MG TABLET PO PRN (17:52)
== END 2022-08-31 18:18 | disposition home or self-care (01) | DRG 750 ==
LOC: EMS 19:58 → 3EI 08-07 02:10
PROVIDERS: ADMIT Psychiatry & Neurology Psychiatry; ATTEND Psychiatry & Neurology Psychiatry
DX: F25.1 Schizoaffective disorder, depressive type (principal); R45.851 Suicidal ideations; E87.6 Hypokalemia; F41.9 Anxiety disorder, unspecified; G89.29 Other chronic pain; Z20.822 Contact with and (suspected) exposure to COVID-19; I10 Essential (primary) hypertension; M19.90 Unspecified osteoarthritis, unspecified site; Z96.649 Presence of unspecified artificial hip joint; F19.10 Other psychoactive substance abuse, uncomplicated; Z79.899 Other long term (current) drug therapy; Z87.891 Personal history of nicotine dependence; Z91.51 Personal history of suicidal behavior; Z71.51 Drug abuse counseling and surveillance of drug abuser
CPT/HCPCS: 80053; 84132; 85025; 87081; 99285; G0480